=== PATIENT | female | born 1950 | race Caucasian/White ===

== ENCOUNTER → 2017-11-26 | Outpatient (CLI) | payer MEDICARE, BC ==
[2015-12-24 17:15] VITALS: BP 144/88
--- NOTE | 2017-11-26 15:45 | RAD ---
DATE: 11/26/2017 EXAM: MAMMO KARRIE SCREENING BILATERAL HISTORY: Screening Mammogram COMPARISON: Mammogram 07/12/2009 This study was interpreted with the benefit of Computerized Aided Detection (CAD). The breast parenchyma is primarily fatty replaced. Breast parenchyma level density A. FINDINGS: Bilateral digital 2-D and 3-D tomosynthesis CC and MLO views. No suspicious mass, calcification or architectural distortion. No significant change from prior examination IMPRESSION: No mammographic evidence of malignancy. Recommend routine screening mammogram in 12 months. BI-RADS CATEGORY: 1 NEGATIVE RECOMMENDED FOLLOW-UP: 12M 12 MONTH FOLLOW-UP PQRS compliance statement: Patient information was entered into a reminder system with a target due date for the next mammogram. Mammography is a sensitive method for finding small breast cancers, but it does not detect them all and is not a substitute for careful clinical examination. A negative mammogram does not negate a clinically suspicious finding and should not result in delay in biopsying a clinically suspicious abnormality. "Our facility is accredited by the [employer] Mammography [employer]."
== END | disposition home or self-care (01) ==
LOC: MAMMO 10:16
PROVIDERS: ATTEND Specialist
DX: Z12.31 Encounter for screening mammogram for malignant neoplasm of breast (principal); I10 Essential (primary) hypertension; E11.9 Type 2 diabetes mellitus without complications
CPT/HCPCS: 77063; 77067

== ENCOUNTER → 2018-12-11 | Outpatient (CLI) | payer MEDICARE, BC ==
[2015-12-24 17:15] VITALS: BP 144/88
--- NOTE | 2018-12-11 12:46 | RAD ---
DATE: 12/11/2018 EXAM: MAMMO KARRIE SCREENING BILATERAL HISTORY: Routine screening COMPARISON: 11/26/2017 This study was interpreted with the benefit of Computerized Aided Detection (CAD). Breast Density: FATTY The breast parenchyma is primarily fatty replaced. Breast parenchyma level density A. FINDINGS: 2-D and 3-D tomosynthesis imaging was performed in CC and MLO projections. No new or enlarging breast densities are seen. Benign type calcifications are again noted. No suspicious microcalcifications have developed. IMPRESSION: Stable mammograms without evidence of malignancy. BI-RADS CATEGORY: 2 BENIGN FINDING(S) RECOMMENDED FOLLOW-UP: 12M 12 MONTH FOLLOW-UP PQRS compliance statement: Patient information was entered into a reminder system with a target due date for the next mammogram. Mammography is a sensitive method for finding small breast cancers, but it does not detect them all and is not a substitute for careful clinical examination. A negative mammogram does not negate a clinically suspicious finding and should not result in delay in biopsying a clinically suspicious abnormality. "Our facility is accredited by the [employer] Mammography [employer]."
== END | disposition home or self-care (01) ==
LOC: MAMMO 10:33
PROVIDERS: ATTEND Specialist
DX: Z12.31 Encounter for screening mammogram for malignant neoplasm of breast (principal)
CPT/HCPCS: 77063; 77067

== ENCOUNTER → 2020-06-07 | Outpatient (CLI) | payer MEDICARE, BC ==
[2015-12-24 17:15] VITALS: BP 144/88
--- NOTE | 2020-06-07 17:11 | RAD ---
BILATERAL SCREENING MAMMOGRAM, 3-D History: Routine screening. Comparison: 11/26/2017, 12/11/2018 Technique: MLO and CC digital tomosynthesis (3D) images obtained. Radiologist reviewed these images on dedicated workstation. Findings: Breast Tissue Density A : The breasts are almost entirely fatty. There are no dominant masses, suspicious microcalcifications, or architectural distortion. IMPRESSION: No mammographic evidence of malignancy. Recommend routine screening. BI-RADS category 1: Negative. The images were reviewed with computer-aided detection. Patient information is entered into reminder system with a target due date for the next screening mammogram. Mammography is the most sensitive method for finding small breast cancers, but it does not detect them all and is not a substitute for careful clinical examination. A negative mammogram does not negate a clinically suspicious finding and should not result in delay in biopsying a clinically suspicious abnormality. "Our facility is accredited by the [employer] Mammography Program." Electronically signed by: Dangelo Mak MD (06/07/2020 5:08 PM) [id number]
== END ==
LOC: MAMMO 11:03
PROVIDERS: ATTEND Specialist
DX: Z12.31 Encounter for screening mammogram for malignant neoplasm of breast (principal)
CPT/HCPCS: 77063; 77067

== ENCOUNTER 2021-02-19 22:58 | Emergency (ER) | payer MEDICARE, BC ==
[~2021-02-19] VITALS: Ht 170.2 cm; Wt 93.2 kg
--- NOTE | 2021-02-19 23:02 | PHYS DOC ---
Past History Past Medical History: Bronchitis, COPD, Diabetes, Hypertension Past Surgical History: Tubal ligation Alcohol Use: None Drug Use: None General Adult EDM: Chief Complaint: COUGH HPI: HPI: "..I ve been coughing constantly the last couple days.. can't get any... sleep... I do have COPD.. I got it from my dad smoking around us as a kid... I do use an inhaler occasionally..." . Patient is a 70 year old female who presents with above hx and complaints dry nonproductive cough. Patient also complaining of congestion and rhinorrhea. Patient also complaining of mildly sore throat. Patient does have a history of past episodes of bronchitis since COPD exacerbation is due to exposure to smoke as a child. 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 Patient denies any specific ill contacts side of her [employer]. There are 2 people in her [employer] group that has had recently upper respiratory infections. Patient does not do flu shot, we will not do Covid vaccinations, but does think she completed the pneumonia shot. Patient normally follows with Dr. Kodak Lanier. No recent travel outside the [place] area. has been well. Patient denies any history immunosuppression. Patient normally healthy. Patient's main concern was she had a fever at home so she felt she should be checked out tonight. Review of Systems: Review of Systems: Constitutional: Subjective complaints of fever or chills Eyes: Denies change in visual acuity HENT: Complains of nasal congestion, rhinorrhea, and sore throat Respiratory: Complains of nonproductive cough and wheezing Cardiovascular: Denies chest pain or edema GI: Denies abdominal pain, nausea, vomiting, bloody stools or diarrhea : Denies dysuria Musculoskeletal: Denies back pain or joint pain Integument: Denies rash Neurologic: Denies headache, focal weakness or sensory changes Endocrine: Denies polyuria or polydipsia Lymphatic: Denies swollen glands Psychiatric: Denies depression or anxiety Family History: Family History: Father had COPD Current Medications: Current Meds: See nursing for home meds Allergies: Allergies: Allergies Coded Allergies Type Severity Reaction Last Updated Verified Penicillins Allergy Intermediate 12/24/15 Yes Physical Exam: PE: Constitutional: Moderate acute distress, non-toxic appearance. [] HENT: Normocephalic, atraumatic, bilateral external ears normal, oropharynx moist, post nasal drainage, mild erythema, no oral exudates, nose swollen turbinates and clear rhinorrhea Eyes: PERRLA, EOMI, conjunctiva mildly injected, , no discharge. Glasses Neck: Normal range of motion, no tenderness, supple, no stridor. Trachea midline. Cardiovascular:Heart rate regular rhythm, no murmur, PMI slightly to the left. Lungs & Thorax: Bilateral breath sounds equal apex with scattered wheezes on auscultation [] Abdomen: Bowel sounds normal, soft, no tenderness, no masses, no pulsatile masses. Old surgery scars Skin: Warm, dry, no erythema, no rash. [] Back: No tenderness, no CVA tenderness. [] Extremities: No tenderness, no cyanosis, no clubbing, ROM intact, no edema. No cording appreciated. Arthritic changes Neurologic: Alert and oriented X 3, normal motor function, normal sensory function, no focal deficits noted. [] Psychologic: Affect anxious, judgement normal, mood normal. [] EKG: EKG: My interpretation of EKG shows a sinus rhythm at 80 bpm. Does have left axis changes. There is some nonspecific T wave changes in the lateral leads. But no findings of acute STEMI with contralateral changes. But would be considered an abnormal EKG. [] Radiology/Procedures: Radiology/Procedures: My interpretation of chest x-ray shows some flattening diaphragm and chronic changes consistent with COPD. But also has patchy areas of infiltrate consistent with atypical pneumonia or viral presentation. [] Heart Score: C/O Chest Pain: N/A HEART Score for Chest Pain: HEART Score for Chest Pain Response (Comments) Value History Slighlty/Non-Suspicious 0 ECG Normal 0 Age > 65 2 Risk Factors 1 or 2 Risk Factors 1 Troponin < Normal Limit 0 Total 3 Risk Factors: Risk Factors: DM, Current or recent (<one month) smoker, HTN, HLP, family history of CAD, obesity. Risk Scores: Score 0 - 3: 2.5% MACE over next 6 weeks - Discharge Home Score 4 - 6: 20.3% MACE over next 6 weeks - Admit for Clinical Observation Score 7 - 10: 72.7% MACE over next 6 weeks - Early Invasive Strategies Course & Med Decision Making: Course & Med Decision Making Pertinent Labs and Imaging studies reviewed. (See chart for details) \\ Patient to push fluids. Get adequate rest. Use MDI 2 puffs 4 times a day. Take prednisone 50 mg a day for 5 days. Patient taking Zithromax 250 mg daily. Use Benadryl 25 to 50 mg 4 times a day for coughing spasms and drainage. Take Tylenol and ibuprofen for discomfort and fever. Follow-up primary care. Return if any concerns. Recommend patient practice self-isolation since chest x-ray somewhat consistent with viral pattern. Follow-up Covid results.. Recommend getting Covid vaccination when she is over this acute illness. Recommend patient get yearly flu vaccination. Recommend patient follow-up with Dr. Heller. The patient return if any concerns. 1. Bronchitis / COPD exacerbation 2. Atypical pneumonia [] Dragon Disclaimer: Dragon Disclaimer: This electronic medical record was generated, in whole or in part, using a voice recognition dictation system. Departure Departure: Referrals: LYNSEY VILLEGAS MD (PCP) Scripts Azithromycin (ZITHROMAX) 250 Mg Tablet 250 MG PO DAILY for ANTI-BIOTIC, #5 TAB 0 Refills Prov: NORAH GEE MD 02/20/21 Prednisone (PREDNISONE) 50 Mg Tablet 50 MG PO DAILY for bronchitis for 5 Days, #5 TAB Prov: NORAH GEE MD 02/20/21 Dragon Disclaimer This chart was dictated in whole or in part using Voice Recognition software in a busy, high-work load, and often noisy Emergency Department environment. It may contain unintended and wholly unrecognized errors or omissions. NORAH GEE MD Feb 19, 2021 23:02
[2021-02-19] MEDS ORDERED: IV RINGERS SOLUTION,LACTATED 1,000 ML IV SCH (23:30)
[2021-02-19] MEDS ORDERED: AZITHROMYCIN 250 MG TABLET. PO ONE (23:30)
[2021-02-19] MEDS ORDERED: predniSONE 10 MG TABLET. PO ONE (23:30)
[2021-02-19] MEDS ORDERED: ALBUTEROL SULFATE 8GM INHALER. INH ONE (23:30)
--- NOTE | 2021-02-19 23:46 | EKG ---
[address] [address] Test Date: 2021-02-19 Test Time: 23:31:51 Pat Name: ALINE MAYO Department: Room: Gender: F Patient Account Representative: : 1950 Requested By: NORAH GEE Order Number: [id number] Reading MD: Measurements Intervals [place] Rate: 80 P: 4 NE: 176 QRS: -3 QRSD: 92 T: 93 QT: 358 QTc: 416 Interpretive Statements SINUS RHYTHM LEFTWARD AXIS T ABNORMALITY IN HIGH LATERAL LEADS ABNORMAL ECG RI6.02 No previous ECG available for comparison
[2021-02-20 00:37] LABS: CALCIUM 9.8 mg/dL (8.5-10.1); CREATININE 0.8 mg/dL (0.6-1.0); GFR 70.7; POTASSIUM 3.9 mmol/L (3.5-5.1)
[2021-02-20 00:49] LABS: BILIRUBIN,URINE NEG (NEG); CLARITY,URINE CLEAR; COLOR,URINE YELLOW; DIRECT BILIRUBIN 0.1 mg/dL (0.0-0.2); GLUCOSE,URINE NEG (NEG); NITRITE,URINE NEG (NEG); TOTAL BILIRUBIN 0.6 mg/dL (0.2-1.0); TOTAL PROTEIN 7.4 g/dL (6.4-8.2); UROBILINOGEN,URINE 0.2 mg/dL (0.2 mg/dL)
[2021-02-20 00:50] LABS: BACTERIA,URINE 0 /HPF (0-FEW); SQUAMOUS EPITHELIAL CELL,UR OCC /LPF; WBC,URINE 0 /HPF (0-4)
[2021-02-20 01:02] LABS: BASO % 1 % (0-3); EOS % 1 % (0-3); HEMATOCRIT 44.4 % (36.0-47.0); HEMOGLOBIN 15.6 g/dL (12.0-15.5); LYMPH # 0.7 x10^3/uL (1.0-4.8); LYMPH % 15 % (24-48); MEAN CORPUSCULAR HEMOGLOBIN 32 pg (25-35); MEAN CORPUSCULAR HGB CONC 35 g/dL (31-37); MEAN CORPUSCULAR VOLUME 92 fL (79-100); MONO # 0.6 x10^3/uL (0.0-1.1); MONO % 14 % (0-9); NEUT # 3.2 x10^3uL (1.8-7.7); NEUT % 70 % (31-73); PLATELET COUNT 145 x10^3/uL (140-400); RED BLOOD COUNT 4.82 x10^6/uL (3.50-5.40); RED CELL DISTRIBUTION WIDTH 12.7 % (11.5-14.5); WHITE BLOOD COUNT 4.6 x10^3/uL (4.0-11.0)
[2021-02-20 01:18] VITALS: BP 139/53
[2021-02-20] MEDS ORDERED: AZIT250T PO (01:19)
[2021-02-20] MEDS ORDERED: PRED50TA PO (01:19)
--- NOTE | 2021-02-20 05:05 | RAD ---
INDICATION: Reason: cough, dyspnea, / Spl. Instructions: / History: COMPARISON: None. FINDINGS: 2 view of chest obtained. Cardiac mediastinal silhouette is mildly enlarged. Mild interstitial and groundglass opacities. Degenerative changes spine IMPRESSION: * Mild interstitial and groundglass opacities which could be from mild edema or infiltrate Electronically signed by: Nigel Ernst MD (02/20/2021 5:03 AM) [id number]
== END 2021-02-20 01:35 | disposition home or self-care (01) ==
LOC: ER 22:58
DX: J18.9 Pneumonia, unspecified organism (principal); J44.9 Chronic obstructive pulmonary disease, unspecified; E11.9 Type 2 diabetes mellitus without complications; I10 Essential (primary) hypertension; Z20.822 Contact with and (suspected) exposure to COVID-19; Z98.51 Tubal ligation status; Z88.0 Allergy status to penicillin
CPT/HCPCS: 71046; 80048; 80076; 81001; 82550; 83880; 84484; 85025; 93005; 94640; 96360; 99285; C9803; J7120; J7512; U0003; 94664

== ENCOUNTER → 2021-09-07 | Outpatient (CLI) | payer MEDICARE, BC ==
[~2021-09-07] MED LIST: AZIT250T PO; PRED50TA PO
--- NOTE | 2021-09-07 14:13 | RAD ---
INDICATION : Routine Screening. COMPARISON: Priors including May 2020 TECHNIQUE: Standard mammogram screening views of the bilateral breasts were obtained with 3D tomosynt hesis. CAD was utilized. FINDINGS: The breasts are fatty density. No definite suspicious mass. IMPRESSION: BI-RADS Category 2: Benign findings. Recommend repeat screening examination in one year. The patient was placed into the recall system with a suggested recall date for follow up imaging. Mammography is the most sensitive method for finding small breast cancers, but it does not detect the m all and is not a substitute for careful clinical examination. A negative mammogram does not negate a clinically suspicious finding and should not result in delay in biopsying a clinically suspicious abnormality. Electronically signed by: Nigel Ernst MD (09/07/2021 2:10 PM) [id number]
--- NOTE | 2021-09-07 14:52 | RAD ---
EXAM: DUAL ENERGY X-RAY ABSORPTIOMETRY (DEXA). HISTORY: Postmenopausal screening. FINDINGS: The lowest measured T-score is -1.8 in the right femoral neck, based on a bone mineral dens ity of 0.790 g/cm^2. Refer to the worksheets for full detail. No comparison examinations are available. IMPRESSION: 1. Low bone mass. Bone mineral density yields a T-score between -1.0 and -2.5. Fracture risk is incre ased. 2. FRAX report: Not calculated. METHODOLOGY: Dual energy x-ray absorptiometry was performed to measure bone mineral density. The foll owing analysis is based on the 2019 Official Positions of the International Society for Clinical Dens itometry: Measurements of the hips and the average of L1-L4 are preferred. When the spine and/or hip cannot be feasibly measured or interpreted, or in the setting of hyperparathyroidism, distal radial bone minera l density may be measured. The lumbar spine T-score is based on the average bone mineral density of L1-L4. In the setting of art ifact or anatomic abnormality, some lumbar levels may be excluded, and the remaining levels used for calculation. A single lumbar level is not used for diagnosis, and if only a single level is available for assessment, another anatomic site will be used to assign a diagnosis. The hip T-score is based on the bone mineral density measurement of the femoral neck or total proxima l femur of either side, whichever is lowest. Bilateral mean values are not used for diagnosis. The forearm T-score is derived from 33% of the distal radius of the nondominant forearm. Electronically signed by: Shalonda Chawla MD (09/07/2021 2:50 PM) [id number]
== END ==
LOC: MAMMO 13:08
PROVIDERS: ATTEND Specialist
DX: Z12.31 Encounter for screening mammogram for malignant neoplasm of breast (principal); M85.88 Other specified disorders of bone density and structure, other site; Z78.0 Asymptomatic menopausal state
CPT/HCPCS: 77063; 77067; 77080